=== PATIENT | female | born 1950 | race American Indian/Alaskan Native ===

== ENCOUNTER 2017-03-29 17:01 | Observation (INO) | payer MEDICARE, BC ==
[2017-03-29 17:02] VITALS: BMI 46.2
[2017-03-29 18:30] LABS: BASO # 0.03 K/mm3 (0.0-2.0); BASO % 0.3 % (0.0-3.0); EOS # 0.1 (0.0-0.7); EOS % 1.3 % (1.5-5.0); GRAN # 5.27 (1.4-6.5); HEMATOCRIT 40.6 % (36.0-48.0); LYMPH # 2.9 (1.2-3.4); LYMPH % 31.4 % (22.0-35.0); MEAN CELL VOLUME 89.4 fl (80.0-105.0); MEAN CORPUSCULAR HEMOGLOBIN 29.1 pg (25.0-35.0); MEAN CORPUSCULAR HGB CONC 32.5 g/dl (31.0-37.0); MONO # 0.8 (0.1-0.6); RED CELL DISTRIBUTION WIDTH 13.3 % (11.5-14.5); WHITE BLOOD COUNT 9.1 10^3/ul (4.5-11.0)
[2017-03-29 18:41] LABS: ALB/GLOB RATIO 1.2 (1.1-1.8); ALKALINE PHOSPHATASE 169 U/L (38-126); ALT/SGPT 39 U/L (7-56); AST/SGOT 47 U/L (14-36); BILIRUBIN,TOTAL 0.8 mg/dL (0.2-1.3); BLOOD UREA NITROGEN 14 mg/dL (7-21); CALCIUM 9.3 mg/dL (8.4-10.5); CARBON DIOXIDE 27 mmol/L (21-33); CHLORIDE 105 mmol/L (98-107); GFR AFRICAN-AMERICAN > 60; GLUCOSE,RANDOM 100 mg/dL (70-110); POTASSIUM 3.9 mmol/L (3.6-5.0); SODIUM 142 mmol/L (132-148)
[2017-03-29 18:43] LABS: INR 1.15 (0.93-1.08)
[2017-03-29 18:44] LABS: PARTIAL THROMBOPLASTIN TIME 32.1 Seconds (25.1-36.5)
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
[2017-03-29] MEDS ORDERED: cefTRIAXone 1 gm 1 GM/100 ML BAG IVPB STA (21:16)
[2017-03-29] MEDS ORDERED: Morphine 4 mg/ml ISec IVP STA (21:19)
[2017-03-29] MEDS ORDERED: NIFEdipine 60 mg ER Tab PO STA (21:19)
[2017-03-29 23:33] VITALS: RESP 20
[2017-03-30] MEDS: Oxycodone/Acetaminophen 5/325 mg Tab PO PRN ×2 (03:00→09:42)
[2017-03-30] MEDS ORDERED: Pantoprazole 40 mg EC Tab PO SCH (06:00)
[2017-03-30] MEDS ORDERED: Metoprolol Succinate 25 mg XL Tab PO SCH (08:00)
[2017-03-30 08:14] VITALS: BP 151/75; PULSE 67; TEMP 97.8; O2SAT 100
--- NOTE | 2017-03-30 12:05 | RAD ---
PROCEDURE: Radiographs of the left tibia and fibula. HISTORY: Pain and swelling left leg COMPARISON: None available. TECHNIQUE: Frontal and lateral views obtained. FINDINGS: BONES: No evidence of acute displaced fracture nor dislocation. . The osseous structures appear intact. There are no cortical destructive changes. JOINT SPACES: The knee joint is incompletely visualized on this study. Ankle joint appears unremarkable. OTHER FINDINGS: Diffuse subcutaneous swelling and infiltration; rule out cellulitis or possibly vascular or posttraumatic etiologies. Clinical correlation recommended. IMPRESSION: No acute fractures. No cortical destructive changes. Nonspecific diffuse subcutaneous swelling and infiltration as above. Rule out cellulitis. See above discussion for additional differential diagnostic considerations
--- NOTE | 2017-03-30 21:05 | HP ---
HISTORY OF PRESENT ILLNESS: The patient is a 66-year-old who came to emergency room last night complaining of left leg pain. The patient has leg Doppler done negative for DVT. She has x-ray done negative. The patient states she was having difficulty walking, so she wanted to stay overnight because there was nobody else at home to take care of her. PAST MEDICAL HISTORY: Significant for: 1. Morbid obesity. 2. Hypertension. 3. History of hepatitis C. 4. Peptic ulcer disease. 5. History of gastric ulcer. SOCIAL HISTORY: She lives by herself. Denies smoking, drinking, or alcohol use. ALLERGIES: SHE IS ALLERGIC TO TORADOL. MEDICATIONS AT HOME: She is on metoprolol 25 daily, Celebrex 200 daily, Protonix 40 daily, valsartan 80/12.5 daily, and nifedipine 60 mg twice a day. REVIEW OF SYSTEMS: Significant for left lower leg pain. PHYSICAL EXAMINATION: GENERAL: She is awake, alert, oriented, and communicative. VITAL SIGNS: She is afebrile, pulse 67, respirations 20, and blood pressure 151/75. HEART: S1 and S2 audible. No murmur. LUNGS: Bilateral good airflow. No rhonchi or crackle. ABDOMEN: Soft, obese, and nontender. No rebound. No guarding. NEUROLOGIC: The patient is awake, alert, oriented, and communicative. Walks with the cane. Left lower extremity seems to be little warm, but no significant erythema or wound is noticed. LABORATORY DATA: WBC is 9.1, hemoglobin is 13.2, hematocrit is 40.6, and platelets are 326. PT is 12.6 and INR is 1.15. Chemistry; sodium is 142, potassium is 3.9, chloride is 105, CO2 is 27, BUN is 14, creatinine is 0.8, and blood sugar is 100. LFTs are within normal limits. ASSESSMENT: 1. Left lower leg mild cellulitis. 2. Hypertension. 3. Morbid obesity. 4. Degenerative disk disease. PLAN: The patient is being discharged home on tramadol as needed. She will continue Celebrex at home. She will continue her medication including Protonix and nifedipine. She was given Keflex 500 three times a day for . Follow up with Dr. Beltran. Tim Saeed MD
--- NOTE | 2017-03-31 18:56 | US ---
PROCEDURE: Left lower extremity venous US HISTORY: Leg pain and swelling. Evaluate for DVT. PHYSICIAN(S): Marco Haas MD. TECHNIQUE: Duplex sonography and color-flow Doppler with graded compression were used to evaluate the deep venous system of the left lower extremity. The exam is limited by body habitus and edema. The tibial veins are not well seen FINDINGS: The visualized deep venous system of the left lower extremity is sonographically normal and compressible. Normal wave forms and augmentation are seen. There is no sonographic evidence for deep venous thrombosis in the visualized segments of the left lower extremity. IMPRESSION: 1. No sonographic evidence for deep venous thrombosis in the visualized segments of the left lower extremity. 2. Limited study. .
== END 2017-03-30 13:53 | disposition home or self-care (01) ==
LOC: ED 17:01 → ERH 21:41 → 5RSO 22:40
PROVIDERS: ADMIT Internal Medicine; ATTEND Internal Medicine
DX: L03.116 Cellulitis of left lower limb (principal); I10 Essential (primary) hypertension; E66.01 Morbid (severe) obesity due to excess calories; R26.2 Difficulty in walking, not elsewhere classified; Z87.11 Personal history of peptic ulcer disease
CPT/HCPCS: 73590; 80053; 85025; 85610; 85730; 87040; 93971; 96365; 96375; 99285; G0378; J2270; J2405

== ENCOUNTER 2017-10-22 14:40 | Emergency (ER) | payer MEDICARE, BC ==
[2017-10-22 14:40] VITALS: BMI 46.2
[2017-10-22 14:57] VITALS: RESP 18
[2017-10-22] MEDS ORDERED: Oxycodone/Acetaminophen 5/325 mg Tab PO STA (15:08)
[2017-10-22 15:09] VITALS: TEMP 99.1
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
--- NOTE | 2017-10-22 16:08 | RAD ---
PROCEDURE: Bilateral Knee Radiographs. HISTORY: bilateral knee pain x 3 days COMPARISON: None. FINDINGS: BONES: Right Knee: No acute fracture. Proliferative hypertrophic changes emanating from the femoral condyle and tibial plateau regions. Left Knee: Normal. No fracture. JOINTS: Right Knee: Moderate-severe tricompartmental degenerative change. Left knee: Mild degenerative change. SOFT TISSUES: Right Knee: Moderate suprapatellar joint effusion. Left Knee: Normal. JOINT EFFUSION: Right Knee: None. Left Knee: None. OTHER FINDINGS: None. IMPRESSION: No acute findings related to/accounting for the clinical presentation. Severe tricompartmental degenerative changes in the right suprapatellar joint effusion.
[2017-10-22 16:53] VITALS: BP 159/85; PULSE 80; O2SAT 97
== END 2017-10-22 16:55 | disposition home or self-care (01) ==
LOC: ED 14:40
DX: M17.0 Bilateral primary osteoarthritis of knee (principal)